=== PATIENT | male | born 1935 | race Caucasian/White ===

== ENCOUNTER 2016-06-01 16:46 | Inpatient (IN) | payer MEDICAID, MEDICARE ==
--- NOTE | 2016-06-01 17:37 | Emergency Department Report ---
HPI - General Chief Complaint: Hyperglycemia Time Seen by Provider: 06/01/16 17:14 - HPI HPI: This is a 81-year-old male presents to the emergency department by EMS from what appears to be a friend's house with hyperglycemia. The patient himself appears altered or has a baseline dementia. He is a poor historian currently. When asked why he is at the hospital, the patient says "I don't know." He gives the same answer for how he got to the hospital. Per EMS, the patient's friend called EMS when the patient started complaining of some generalized pain and appearing slightly altered. The patient does have some history of CVA and insulin-dependent diabetes. The patient's family is not bedside and able to give a little bit more information. The patient was visiting a family member when he started became unresponsive. The patient did have a history of a CVA in the past that left him with some deficits but they resolved. He does have a history of dementia and goes between AAO 2-3. He has a primary care doctor in [facility]. ED Past Medical Hx - Past Medical History Hx CVA: Yes (2 months ago) Hx Diabetes: Yes - Social History Smoking Status: Never Smoker Substance Use Type: None - Medications Home Medications: Home Medications Medication Instructions Recorded Confirmed Last Taken Type Unobtainable 06/01/16 06/01/16 Unknown History ED Review of Systems ROS: Stated complaint: HYPERGLYCEMIA Other details as noted in HPI Comment: Unobtainable due to pts medical conditions Physical Exam - Physical Exam Vital Signs: Vital Signs 06/01/16 17:14 Temperature 98.3 F Pulse Rate 89 Respiratory 16 Rate Blood Pressure 120/69 [Left] O2 Sat by Pulse 99 Oximetry Physical Exam: GENERAL: The patient is well-developed well-nourished. Patient is awake but does appear confused. HEENT: Normocephalic. Atraumatic. Extraocular motions are intact. Patient has moist mucous membranes. Pupils equal reactive to light bilaterally. NECK: Supple. Trachea is midline. CHEST/LUNGS: Clear to auscultation. There is no respiratory distress noted. HEART/CARDIOVASCULAR: Regular. There is no tachycardia. There is no gallop rub or murmur. ABDOMEN: Abdomen is soft, nontender. Patient has normal bowel sounds. There is no abdominal distention. SKIN: Skin is warm and dry. NEURO: Patient is awake. AAO [address] but not time. Follows some commands. Withdraws to painful stimuli. MUSCULOSKELETAL: There is no tenderness or deformity. There is no limitation range of motion. There is no evidence of acute injury. ED Course Vital Signs 06/01/16 17:14 Temperature 98.3 F Pulse Rate 89 Respiratory 16 Rate Blood Pressure 120/69 [Left] O2 Sat by Pulse 99 Oximetry ED Medical Decision Making - Lab Data Result diagrams: 06/01/16 19:21 06/01/16 19:21 - EKG Data -: EKG Interpreted by Me EKG shows normal: sinus rhythm, axis, intervals, QRS complexes (q waves to the anterior leads), ST-T waves Rate: normal - EKG Data When compared to previous EKG there are: previous EKG unavailable Interpretation: other (q waves to anterior leads) - Radiology Data Radiology results: report reviewed, image reviewed interpreted by me: Chest x-ray did not show any acute process. Heart is normal shape and size. No effusions. No pneumothorax. No signs of pneumonia seen. CT of the head without contrast shows evidence of moderate atrophy and gliosis. Old area of encephalomalacia in the left frontal lobe. Old lacunar infarcts. Abnormal increased density seen in the left side of the sphenoid sinus road into the left temporal fossa and sella turcica anteriorly. A mass originating in the sphenoid sinus is probably more likely although a mass in the sella turcica extending and sphenoid sinus cannot be excluded. Consider malignancy an infectious etiology. MRI of the brain without and with gadolinium is recommended. - Medical Decision Making 81-year-old male presents the emergency department with altered mental status or some episodes of being unresponsive. Patient was found have elevated blood sugar of almost 500. There is no significant elevated anion gap and there is no acidosis and patient does not appear to be in diabetic ketoacidosis. It is possible that it is some low-grade HHNK. He was given IV fluid resuscitation and IV insulin to bring the blood sugar further down. Patient did have a CT scan of the head without contrast that shows concern for some abnormal density in the left sphenoid sinus and erodes into the left temporal fossa and sella turcica that could be malignancy versus infectious etiology. Family is bedside and confirms that this is altered mental status for this patient despite his history of dementia. He will be admitted to the hospital for further evaluation and treatment is been accepted for admission by the hospitalist, Dr. Quiles. - Differential Diagnosis malignancy, fungal infection, DKA, HHNK, CVA Critical Care Time: No Critical care attestation.: If time is entered above; I have spent that time in minutes in the direct care of this critically ill patient, excluding procedure time. ED Disposition Clinical Impression: Hyperglycemia Altered mental state Qualifiers: Altered mental status type: unspecified Qualified Code(s): R41.82 - Altered mental status, unspecified Brain malignancy Qualifiers: Malignant neoplasm of brain location: overlapping locations Qualified Code(s): C71.8 - Malignant neoplasm of overlapping sites of brain Disposition: OP ADMITTED IP TO THIS HOSP Is pt being admited?: Yes Condition: Fair Time of Disposition: 22:14
[2016-06-01 17:48] LABS: Urine Drugs of Abuse Note Disclamer
[2016-06-01 17:59] LABS: Bilirubin,Urine NEG (Negative); Blood,Urine SM (Negative); Ketones,Urine NEG (Negative); Leukocyte Esterase,Urine NEG (Negative); Mucus,Urine FEW /HPF; Nitrite,Urine NEG (Negative); Protein,Urine <15 mg/dL mg/dL (Negative); Urobilinogen,Urine < 2.0 mg/dL (<2.0); WBC,Urine < 1.0 /HPF (0.0-6.0)
--- NOTE | 2016-06-01 18:20 | Cat Scan Report ---
FINAL REPORT PROCEDURE: CT HEAD/BRAIN WO CON TECHNIQUE: Computerized tomography of the head was performed without contrast material. HISTORY: Altered mental status. COMPARISON: No prior studies are available for comparison. FINDINGS: There is no evidence of intracranial hemorrhage. No parenchymal hemorrhage is visualized. The ventricles sulcal pattern and fissures are prominent consistent with moderate diffuse atrophy. There is decreased density in the periventricular white matter without mass effect suggesting moderate gliosis related to microvascular disease or white matter changes of aging. Old area of encephalomalacia is visualized in the left frontal lobe anterior. There appears to be an old lacunar infarct in the right basal ganglia. There also appear to be old lacunar infarcts in the external capsules bilaterally. There is opacification of the sphenoid sinus. A mass appears to be present eroding through left side of the sphenoid sinus into the left temporal fossa. There also appears to be erosion into the anterior aspect of the sella turcica. A mass originating in the sella turcica or within the sphenoid sinus including malignancy or infectious etiology could present in this manner. There is no hemorrhage or mass effect in the left temporal fossa. This does not appear to be invading the left temporal lobe. The abnormal density extends transverse 3.4 centimeter, 2.5 centimeter AP. IMPRESSION: There is evidence of moderate atrophy and gliosis. Old area of encephalomalacia seen left frontal lobe. Old lacunar infarcts are present. Abnormal increased density seen in the left side of the sphenoid sinus eroding into the left temporal fossa and sella turcica anteriorly. A mass originating in the sphenoid sinus is probably more likely although I cannot exclude a mass in the sella turcica extending into the sphenoid sinus. Consider malignancy and infectious etiology. MRI of the brain without with gadolinium enhancement is recommended.
--- NOTE | 2016-06-01 18:49 | Admit Criteria Form ---
Admission Criteria Documentation: MENTAL STATUS CHANGE Clinical Indications for Inpatient Care (Place 'X' for any and all applicable criteria): Ongoing inpatient care may be needed for ANY ONE of the following(1)(2)(3)(5)(6) : [X]I. Suspected serious etiology (eg, medical disorder, MATCH[employer]OOK [employer]ER event) of mental status change [ ]II. Danger to self or others not manageable at lower level of care [ ]III. Grave disability (eg, inability to perform self care necessary at lower level of care) [ ]IV. Agitation or inappropriate behavior interfering with care for primary condition (eg, attempting to discontinue lines or drains prematurely, unable to cooperate with respiratory care) [ ]V. Delirium [A] [D][E] as described by ANY ONE of the following(26): [ ]a) Delirium due to alcohol or sedative [F] withdrawal [ ]b) Delirium of uncertain etiology that has not responded to appropriate empiric treatment [ ]c) Delirium that prevents performance of a life-sustaining function (eg, feeding or hydrating oneself) [ ]. General contraindications and/or Inappropriate clinical situations for Observational Care in patients with Mental Status Change, when ANY ONE of the following is required: [ ]a) Prediction of prolongation of LOS based on ANY ONE of the following may be considered as a contraindication for observational care 2, 3, 4, 5, 6, 7, 8, 9, 10, 11 [ ]i) Age > 65 yrs. [ ]ii) Patient arriving by ambulance [ ]iii) Patient with high acuity [ ]iv) Patient requiring vital sign monitoring [ ]v) Patient on IV medication [ ]b) Systolic blood pressures 180mmHg 3,12 [ ]c) Patient with altered mental status including delirium and other alteration of consciousness, (3) [ ]d) Patient whose discharge disposition will be to a shelter home or rehabilitation home should not be managed in Emergency Department Observation Unit. CMS rule requires 3 days hospital stay before such placement.3,13 [ ]e) Patient with failure to thrive due to broad array of etiologies 3,16,17 [ ]f) Inability to ambulate 3,14 Extended stay beyond goal length of stay for the primary condition may be needed until ALL of the following are present(3)(5): [ ]a) Underlying medical etiology of mental status change is absent, or has been established and adequately treated [ ]b) Danger to self or others is absent or manageable at lower level of care. [ ]c) Behavior crisis management, including physical or chemical restraints, is not required or available at lower level of car [ ]d) Substance or alcohol withdrawal is absent or manageable at lower level of care. [ ]e) Behavioral symptoms (eg, agitation, somnolence, inappropriate behavior) are absent, or are manageable at lower level of care. The original [facility] content created by [facility] has been revised. The portions of the content which have been revised are identified through the use of italic text or in bold, and [facility] has neither reviewed nor approved the modified material. All other unmodified content is copyright [facility]. Please see references footnoted in the original [facility] edition 2016
[2016-06-01 19:52] LABS: Basophils % (Auto) 0.3 % (0.0-1.8); Eosinophils % (Auto) 0.1 % (0.0-4.3); Hematocrit 42.7 % (35.5-45.6); Hemoglobin 14.5 gm/dl (11.8-15.2); Mean Corpuscular HGB Conc 34 % (32-34); Mean Corpuscular Hemoglobin 29 pg (28-32); Mean Corpuscular Volume 87 fl (84-94); Platelet Count 264 K/mm3 (140-440); Red Blood Count 4.94 M/mm3 (3.65-5.03); Red Cell Distribution Width 12.8 % (13.2-15.2); White Blood Count 9.3 K/mm3 (4.5-11.0)
[2016-06-01 20:03] LABS: Anion Gap 19 mmol/L; Blood Urea Nitrogen 14 mg/dL (9-20); Calcium 9.3 mg/dL (8.4-10.2); Carbon Dioxide 23 mmol/L (22-30); Chloride 96.3 mmol/L (98-107); Glucose 474 mg/dL (75-100); Potassium 4.5 mmol/L (3.6-5.0); Sodium 134 mmol/L (137-145)
[2016-06-01] MEDS ORDERED: NACL 0.9% 1000 ML 1,000 ML IV ONE (20:05)
[2016-06-01] MEDS ORDERED: LEVEMIR SUB-Q SCH (22:00)
[2016-06-01] MEDS ORDERED: D50W (25GM) IV PRN (22:10)
--- NOTE | 2016-06-01 22:13 | History and Physical Report ---
History of Present Illness Date of examination: 06/01/16 Chief complaint: Altered mental status History of present illness: 81-year-old male with past medical history significant for dementia, Dm, hypertension presented to the emergency department with complaints of altered mental status. The patient stated he don't know why he came to the hospital. per his grand daughter the patient was at friends house when he had AMS. He lost his consciousness briefly. No abnormal body movement. The patient returned to his base line. No new compliants. REVIEW OF SYSTEMS: GENERAL: no weight change, no fatigue, no fever HEAD: no head ache EYES: no blurry vision, no acute visual loss EARS: no hearing loss, no discharge, no earache NOSE: no stuffiness, no sneezing, no discharge MOUTH, THROAT AND NECK: no bleeding gums, no sore throat, no swollen neck CARDIAC: no palpitations, no dyspnea on exertion, no orthopnea, no PND, no edema , no chest pain RESPIRATORY: no shortness of breath, no wheeze, no cough, no sputum, no hemoptysis, no asthma GI: no decreased appetite, no nausea, no vomiting, no dysphagia, no diarrhea, no constipation, no abdominal pain URINARY: no change in frequency, no urgency, no polyuria, no hematuria, no incontinence MUSCULOSKELETAL: no muscle weakness, no pain, no joint stiffness NEUROLOGIC: no loss of sensation/numbness, no tingling, no tremors, no weakness/ paralysis HEMATOLOGIC: no anemia, no easy bruising SKIN: no rashes ENDOCRINE: no heat/cold intolerance, no polyuria, no polydipsia, no thyroid problems, no diabetes PSYCHIATRIC: no anxiety, no depression, no suicidal ideations Past History Past Medical History: diabetes, hypertension, other (dementia) Past Surgical History: No surgical history Social history: full code. denies: smoking, alcohol abuse, prescription drug abuse, IV drug use Family history: no significant family history Medications and Allergies Allergies Allergy/AdvReac Type Severity Reaction Status Date / Time No Known Allergies Allergy Unverified 06/01/16 17:13 Home Medications Medication Instructions Recorded Confirmed Last Taken Type Unobtainable 06/01/16 06/01/16 Unknown History Active Meds: Active Medications Enoxaparin Sodium (Lovenox) 40 mg SUB-Q QDAY TANK Exam - Physical Exam Narrative exam: Not in cardiopulmonary distress. The patient appeared well nourished and normally developed. Vital signs as documented. Head exam is unremarkable. No scleral icterus . Neck is without jugular venous distension, thyromegaly, or carotid bruits. Lungs are clear to auscultation. Cardiac exam reveals regular rate and Rhythm. First and second heart sounds normal. No murmurs, rubs or gallops. Abdominal exam reveals normal bowel sounds, no masses, no organomegaly and no aortic enlargement. Extremities are nonedematous and both femoral and pedal pulses are normal. STORE ADMINISTRATIVE ASSISTANT: Alert and oriented 2. No focal weakness. - Constitutional Vitals: Temp Pulse Resp BP Pulse Ox 98.3 F 91 H 12 140/70 99 06/01/16 17:14 06/01/16 19:30 06/01/16 19:30 06/01/16 19:30 06/01/16 19:30 Results - Labs CBC & Chem 7: 06/01/16 19:21 06/01/16 19:21 Labs: Laboratory Last Values WBC 9.3 K/mm3 (4.5-11.0) 06/01/16 19:21 RBC 4.94 M/mm3 (3.65-5.03) 06/01/16 19:21 Hgb 14.5 gm/dl (11.8-15.2) 06/01/16 19:21 Hct 42.7 % (35.5-45.6) 06/01/16 19:21 MCV 87 fl (84-94) 06/01/16 19:21 MCH 29 pg (28-32) 06/01/16 19:21 MCHC 34 % (32-34) 06/01/16 19:21 RDW 12.8 % (13.2-15.2) L 06/01/16 19:21 Plt Count 264 K/mm3 (140-440) 06/01/16 19:21 Lymph % (Auto) 16.7 % (13.4-35.0) 06/01/16 19:21 Ness % (Auto) 5.2 % (0.0-7.3) 06/01/16 19:21 Eos % (Auto) 0.1 % (0.0-4.3) 06/01/16 19:21 Baso % (Auto) 0.3 % (0.0-1.8) 06/01/16 19:21 Lymph # 1.6 K/mm3 (1.2-5.4) 06/01/16 19:21 Ness # 0.5 K/mm3 (0.0-0.8) 06/01/16 19:21 Eos # 0.0 K/mm3 (0.0-0.4) 06/01/16 19:21 Baso # 0.0 K/mm3 (0.0-0.1) 06/01/16 19:21 Seg Neutrophils % 77.7 % (40.0-70.0) H 06/01/16 19:21 Seg Neutrophils # 7.2 K/mm3 (1.8-7.7) 06/01/16 19:21 VBG pH 7.381 (7.320-7.420) 06/01/16 19:21 Sodium 134 mmol/L (137-145) L 06/01/16 19:21 Potassium 4.5 mmol/L (3.6-5.0) 06/01/16 19:21 Chloride 96.3 mmol/L (98-107) L 06/01/16 19:21 Carbon Dioxide 23 mmol/L (22-30) 06/01/16 19:21 Anion Gap 19 mmol/L 06/01/16 19:21 BUN 14 mg/dL (9-20) 06/01/16 19:21 Creatinine 0.8 mg/dL (0.8-1.5) 06/01/16 19:21 Estimated GFR > 60 ml/min 06/01/16 19:21 BUN/Creatinine Ratio 17.50 % 06/01/16 19:21 Glucose 474 mg/dL (75-100) H 06/01/16 19:21 POC Glucose 437 (70-105) H 06/01/16 21:41 Calcium 9.3 mg/dL (8.4-10.2) 06/01/16 19:21 Troponin T < 0.010 ng/mL (0.00-0.029) 06/01/16 19:21 TSH 3.060 mlU/mL (0.270-4.200) 06/01/16 19:21 Urine Color Yellow (Yellow) 06/01/16 17:45 Urine Turbidity Clear (Clear) 06/01/16 17:45 Urine pH 7.0 (5.0-7.0) 06/01/16 17:45 Ur Specific [place] 1.022 (1.003-1.030) 06/01/16 17:45 Urine Protein <15 mg/dl mg/dL (Negative) 06/01/16 17:45 Urine Glucose (UA) >=500 mg/dL (Negative) 06/01/16 17:45 Urine Ketones Neg mg/dL (Negative) 06/01/16 17:45 Urine Blood Sm (Negative) 06/01/16 17:45 Urine Nitrite Neg (Negative) 06/01/16 17:45 Urine Bilirubin Neg (Negative) 06/01/16 17:45 Urine Urobilinogen < 2.0 mg/dL (<2.0) 06/01/16 17:45 Ur Leukocyte Esterase Neg (Negative) 06/01/16 17:45 Urine WBC (Auto) < 1.0 /HPF (0.0-6.0) 06/01/16 17:45 Urine RBC (Auto) 1.0 /HPF (0.0-6.0) 06/01/16 17:45 U Epithel Cells (Auto) < 1.0 /HPF (0-13.0) 06/01/16 17:45 Urine Mucus Few /HPF 06/01/16 17:45 Urine Opiates Screen Presumptive negative 06/01/16 17:45 Urine Methadone Screen Presumptive negative 06/01/16 17:45 Ur Barbiturates Screen Presumptive negative 06/01/16 17:45 Ur Phencyclidine Scrn Presumptive negative 06/01/16 17:45 Ur Amphetamines Screen Presumptive negative 06/01/16 17:45 U Benzodiazepines Scrn Presumptive negative 06/01/16 17:45 Urine Cocaine Screen Presumptive negative 06/01/16 17:45 U Marijuana (THC) Screen Presumptive negative 06/01/16 17:45 Drugs of Abuse Note Disclamer 06/01/16 17:45 Ketones mmol/L (-0.28) 06/01/16 19:21 - Imaging and Cardiology CT Scan - head: report reviewed (mass on the left side of the sphenoid sinus eroding into the left temporal fossa) Assessment and Plan Assessment and plan: AMS Mass on CT head DM hyperglycemia HTN - MRI head - neurology consult - ID consult to r/o fungal infection - resume his home insulin - F/U carotid doppler, Echo DVT prophylaxis - Lovenox Disposition - Admit to medical floor Advance Directives: Yes VTE prophylaxis?: Chemical Plan of care discussed with patient/family: Yes
--- NOTE | 2016-06-02 10:26 | XRay Report ---
Single view chest: History: Chest pain. Findings: Borderline cardiomegaly. Trachea is midline. No consolidation, pneumothorax or pleural effusion. Impression: No acute cardiopulmonary findings.
[2016-06-02] MEDS: LOVENOX SUB-Q SCH (10:29)
--- NOTE | 2016-06-02 15:44 | Progress Note ---
Assessment and Plan Assessment and plan: Patient is a 81-year-old male with past medical history significant for dementia , Dm, hypertension presented to the emergency department with complaints of altered mental status. The patient stated he don't know why he came to the hospital. per his grand daughter the patient was at friends house when he had AMS. He lost his consciousness briefly. No abnormal body movement. The patient returned to his base line. No new compliants. Current family. The patient had recently had a change and diabetic medication when he was taken off of his oral medications and placed on a low dose of Lantus. On arrival to the hospital the patient was noted to have hyperglycemic state. He has a primary care doctor in [facility]. * Acute metabolic encephalopathy likely secondary to hyperglycemic coma * Uncontrolled diabetes mellitus * Hyperglycemic coma without DKA * Brain mass unknown etiology. 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 * We'll obtain a KUB * Weight MRI results of the brain * Continue current therapy included antibiotics as already ordered await ID input. To rule out fungal infection. * Await echocardiogram and carotid Doppler * DVT and GI prophylaxis * No family at bedside at this time * Fall precautions History Interval history: Patient seen and examined this morning in no acute distress Denies any chest pain, nausea, vomiting, diarrhea No fever noted blood pressure controlled No adverse events reported to me by nursing staff Hospitalist Physical - Physical exam Narrative exam: VITAL SIGNS: Reviewed. GENERAL: The patient appeared well nourished and normally developed. Vital signs as documented. HEAD: No signs of head trauma. EYES: Pupils are equal. Extraocular motions intact. EARS: Hearing grossly intact. MOUTH: Oropharynx is normal. NECK: No adenopathy, no JVD. CHEST: Chest with clear breath sounds bilaterally. No wheezes, rales, or rhonchi. CARDIAC: Regular rate and rhythm. S1 and S2, without murmurs, gallops, or rubs. VASCULAR: No Edema. Peripheral pulses normal and equal in all extremities. ABDOMEN: Soft, without detectable tenderness. Mild distention with hypoactive sounds. No rebound or guarding, and no masses palpated. MUSCULOSKELETAL: Good range of motion of all major joints. Extremities without clubbing, cyanosis or edema. NEUROLOGIC EXAM: Alert and oriented x 3. No focal sensory or strength deficits. Speech normal. Follows commands. PSYCHIATRIC: Mood normal. SKIN: No rash or lesions. - Constitutional Vitals: Temp Pulse Resp BP Pulse Ox 97.9 F 81 20 136/74 97 06/02/16 08:10 06/02/16 08:10 06/02/16 08:10 06/02/16 08:10 06/02/16 08:10 Results - Labs CBC & Chem 7: 06/01/16 19:21 06/01/16 19:21 Labs: Laboratory Last Values WBC 9.3 K/mm3 (4.5-11.0) 06/01/16 19:21 RBC 4.94 M/mm3 (3.65-5.03) 06/01/16 19:21 Hgb 14.5 gm/dl (11.8-15.2) 06/01/16 19:21 Hct 42.7 % (35.5-45.6) 06/01/16 19:21 MCV 87 fl (84-94) 06/01/16 19:21 MCH 29 pg (28-32) 06/01/16 19:21 MCHC 34 % (32-34) 06/01/16 19:21 RDW 12.8 % (13.2-15.2) L 06/01/16 19:21 Plt Count 264 K/mm3 (140-440) 06/01/16 19:21 Lymph % (Auto) 16.7 % (13.4-35.0) 06/01/16 19:21 [place] % (Auto) 5.2 % (0.0-7.3) 06/01/16 19:21 Eos % (Auto) 0.1 % (0.0-4.3) 06/01/16 19:21 Baso % (Auto) 0.3 % (0.0-1.8) 06/01/16 19:21 Lymph # 1.6 K/mm3 (1.2-5.4) 06/01/16 19:21 [place] # 0.5 K/mm3 (0.0-0.8) 06/01/16 19:21 Eos # 0.0 K/mm3 (0.0-0.4) 06/01/16 19:21 Baso # 0.0 K/mm3 (0.0-0.1) 06/01/16 19:21 Seg Neutrophils % 77.7 % (40.0-70.0) H 06/01/16 19:21 Seg Neutrophils # 7.2 K/mm3 (1.8-7.7) 06/01/16 19:21 VBG pH 7.381 (7.320-7.420) 06/01/16 19:21 Sodium 134 mmol/L (137-145) L 06/01/16 19:21 Potassium 4.5 mmol/L (3.6-5.0) 06/01/16 19:21 Chloride 96.3 mmol/L (98-107) L 06/01/16 19:21 Carbon Dioxide 23 mmol/L (22-30) 06/01/16 19:21 Anion Gap 19 mmol/L 06/01/16 19:21 BUN 14 mg/dL (9-20) 06/01/16 19:21 Creatinine 0.8 mg/dL (0.8-1.5) 06/01/16 19:21 Estimated GFR > 60 ml/min 06/01/16 19:21 BUN/Creatinine Ratio 17.50 % 06/01/16 19:21 Glucose 474 mg/dL (75-100) H 06/01/16 19:21 POC Glucose 194 (70-105) H 06/02/16 14:14 Calcium 9.3 mg/dL (8.4-10.2) 06/01/16 19:21 Troponin T < 0.010 ng/mL (0.00-0.029) 06/01/16 19:21 TSH 3.060 mlU/mL (0.270-4.200) 06/01/16 19:21 Urine Color Yellow (Yellow) 06/01/16 17:45 Urine Turbidity Clear (Clear) 06/01/16 17:45 Urine pH 7.0 (5.0-7.0) 06/01/16 17:45 Ur Specific [place] 1.022 (1.003-1.030) 06/01/16 17:45 Urine Protein <15 mg/dl mg/dL (Negative) 06/01/16 17:45 Urine Glucose (UA) >=500 mg/dL (Negative) 06/01/16 17:45 Urine Ketones Neg mg/dL (Negative) 06/01/16 17:45 Urine Blood Sm (Negative) 06/01/16 17:45 Urine Nitrite Neg (Negative) 06/01/16 17:45 Urine Bilirubin Neg (Negative) 06/01/16 17:45 Urine Urobilinogen < 2.0 mg/dL (<2.0) 06/01/16 17:45 Ur Leukocyte Esterase Neg (Negative) 06/01/16 17:45 Urine WBC (Auto) < 1.0 /HPF (0.0-6.0) 06/01/16 17:45 Urine RBC (Auto) 1.0 /HPF (0.0-6.0) 06/01/16 17:45 U Epithel Cells (Auto) < 1.0 /HPF (0-13.0) 06/01/16 17:45 Urine Mucus Few /HPF 06/01/16 17:45 Urine Opiates Screen Presumptive negative 06/01/16 17:45 Urine Methadone Screen Presumptive negative 06/01/16 17:45 Ur Barbiturates Screen Presumptive negative 06/01/16 17:45 Ur Phencyclidine Scrn Presumptive negative 06/01/16 17:45 Ur Amphetamines Screen Presumptive negative 06/01/16 17:45 U Benzodiazepines Scrn Presumptive negative 06/01/16 17:45 Urine Cocaine Screen Presumptive negative 06/01/16 17:45 U Marijuana (THC) Screen Presumptive negative 06/01/16 17:45 Drugs of Abuse Note Disclamer 06/01/16 17:45 Ketones mmol/L (-0.28) 06/01/16 19:21 - Imaging and Cardiology Abdominal x-ray: pending MRI - head: pending
--- NOTE | 2016-06-02 16:29 | Consultation ---
History of Present Illness - Reason for Consult Consult date: 06/02/16 altered mental status Requesting physician: CARLITOS SAUNDERS - History of Present Illness 81-year-old male with past medical history significant for dementia, Dm, hypertension presented to the emergency department with complaints of altered mental status. The patient stated he don't know why he came to the hospital. per his grand daughter the patient was at friends house when he had AMS. He lost his consciousness briefly. No abnormal body movement. The patient returned to his base line. No new compliants. Infectious disease consulted. I saw patient at bedside. He is unable to provide history. However, patient had hyperglycemia at time of presentation PHYSICAL EAXAM VS - Afebrile chest - good air entry cvs - s1s2 abd - bs+ labs - reviewed. See lab section ASSESSMENT 1. Sinus mass/sinusitis 2. dm2 - uncontrolled 3. altered mental status may be sec to DKA. RECOMMENDATION 1. will not commence antibiotics 2. agree with mri brain will follow. Past History Past Medical History: diabetes, hypertension, other (dementia) Past Surgical History: No surgical history Social history: full code. denies: smoking, alcohol abuse, prescription drug abuse, IV drug use Family history: no significant family history Medications and Allergies Allergies Allergy/AdvReac Type Severity Reaction Status Date / Time No Known Allergies Allergy Unverified 06/01/16 17:13 Home Medications Medication Instructions Recorded Confirmed Last Taken Type Unobtainable 06/01/16 06/01/16 Unknown History Active Meds: Active Medications Dextrose (D50w (25gm)) 50 ml IV PRN PRN PRN Reason: Hypoglycemia Enoxaparin Sodium (Lovenox) 40 mg SUB-Q QDAY TANK Last Admin: 06/02/16 10:29 Dose: 40 mg Insulin Aspart (Novolog) 0 units SUB-Q QHS TANK PRN Reason: Protocol Insulin Detemir (Levemir) 20 units SUB-Q QHS TANK Physical Examination - Constitutional Vitals: Vital Signs Temp Pulse Resp BP Pulse Ox 97.9 F 81 20 136/74 97 06/02/16 08:10 06/02/16 08:10 06/02/16 08:10 06/02/16 08:10 06/02/16 08:10 Temperature -Last 24 Hours Temperature 97.9 F Temperature 98.5 F Results - Labs CBC & Chem 7: 06/01/16 19:21 06/01/16 19:21 Labs: Abnormal lab results 06/01/16 06/02/16 06/02/16 Range/Units 23:27 06:24 08:07 POC Glucose 284 H 195 H 169 H (70-105) 06/02/16 Range/Units 14:14 POC Glucose 194 H (70-105)
--- NOTE | 2016-06-02 16:52 | Magnetic Resonance Report ---
FINAL REPORT EXAM: MR BRAIN WO CON HISTORY: abnormal head CT TECHNIQUE: MRI of the brain without IV contrast. PRIORS: CT head June 02, 2015. FINDINGS: T2/FLAIR hyperintensities in the periventricular and subcortical white matter are nonspecific. Confluent areas of T2 hyperintensity particularly in the both frontal white matter is identified. Scattered hemosiderin deposits in the brain or calcifications identified. Focal area of encephalomalacia in the left frontal lobe could be related to chronic ischemia. Some calcification or hemosiderin deposits also noted within this region. A focal lesion is not entirely excluded. Wchs-yr-[place]cn[place] generalized atrophy noted. Midline structures are unremarkable. There is no tonsillar ectopy. Age appropriate avery-white matter differentiation is noted. There is no hydrocephalus. No intracranial mass. There is no hemorrhage. There is no midline shift. There is no restricted diffusion to suggest acute ischemia. The CP angles are grossly noted. Major flow voids are present. Within the sphenoid sinus there is a large expansile mass with intermediate T2 signal characteristics centrally and surrounding high T2 signal characteristics. There is thinning of the posterior and left lateral sphenoid partida on series 6:7. There does not appear to be any obvious intra or axial extension into the left temporal fossa 0 or the pre pontine cistern region. Overall size of the lesion measures 33 x 33 x 22 mm. There is slight expansion of the roof of the sphenoid sinus and thinning of the sella turcica. No extension into the sella identified. The pituitary gland appears relatively intact. The adjacent carotids appear intact. The cavernous sinuses do not appear to be directly involved. Smooth lobulated contours noted. No clear destructive features identified on the MRI or prior CT scan. Lesion does extend into the left orbital apex. The visualized optic nerves appear to be relatively symmetrical. Please correlate for possible diplopia or dysconjugate gaze. No proptosis is identified. Calvarial signal characteristics are grossly unremarkable. Extracranial soft tissues are intact. IMPRESSION: Expansile sphenoid lesion with focal areas of cortical thinning of the sphenoid sinus along the left lateral wall and posterior wall. No intracranial extension is clearly evident but further evaluation with MRI of the brain with contrast is recommended. No extension into the sella. There is extension toward the left orbital apex. Please correlate for dysconjugate gaze or diplopia. Differential diagnosis includes inverted papilloma, tumor, mucous retention cysts, polyp, or inflammatory infectious sinusitis. Nonspecific T2 hyperintensities in the white matter. Differential diagnosis includes microvascular ischemic disease, demyelinating process, and trauma. Confluent areas of T2 hyperintensity in the left and right frontal white matter. Left is more prominent with a focal area of encephalomalacia. Findings probably related to chronic ischemia. Underlying lesion such as a vascular malformation or tumor is not entirely excluded. Further imaging with MRI of the brain with contrast may be helpful.
[2016-06-02] MEDS ORDERED: NOVOLOG SUB-Q ONE (18:16)
[2016-06-02] MEDS: NOVOLOG SUB-Q SCH ×2 (18:24→21:55)
[2016-06-02] MEDS ORDERED: NOVOLOG SUB-Q SCH (22:00)
[2016-06-02] MEDS ORDERED: LEVEMIR SUB-Q SCH ×2 (22:00→22:15)
[2016-06-03 05:48] LABS: Hematocrit 41.2 % (35.5-45.6); Hemoglobin 13.8 gm/dl (11.8-15.2); Mean Corpuscular HGB Conc 34 % (32-34); Mean Corpuscular Hemoglobin 29 pg (28-32); Mean Corpuscular Volume 86 fl (84-94); Platelet Count 246 K/mm3 (140-440); Red Blood Count 4.81 M/mm3 (3.65-5.03); Red Cell Distribution Width 12.5 % (13.2-15.2); White Blood Count 9.4 K/mm3 (4.5-11.0)
[2016-06-03 06:11] LABS: Anion Gap 17 mmol/L; BUN/Creatinine Ratio 21.66; Blood Urea Nitrogen 13 mg/dL (9-20); Calcium 8.3 mg/dL (8.4-10.2); Carbon Dioxide 23 mmol/L (22-30); Chloride 102.6 mmol/L (98-107); Glucose 134 mg/dL (75-100); Sodium 139 mmol/L (137-145)
[2016-06-03 06:12] LABS: Potassium 3.4 mmol/L (3.6-5.0)
[2016-06-03] MEDS: NOVOLOG SUB-Q SCH ×2 (07:44→11:45)
[2016-06-03 09:52] VITALS: BP 146/77
--- NOTE | 2016-06-03 10:17 | XRay Report ---
KUB: 06/02/16 12:58:00 CLINICAL: Abdominal pain. FINDINGS: A relatively gasless abdomen with a large volume of stool throughout the colon. Possible left renal calculus. No pneumoperitoneum. Haziness of the abdomen suggests possible ascites. Degenerative change in the spine. IMPRESSION: Possible ascites. Moderate stool but no bowel obstruction.
[2016-06-03] MEDS: LOVENOX SUB-Q SCH (10:28)
--- NOTE | 2016-06-03 13:43 | Discharge Summary ---
Providers - Providers Date of Admission: 06/01/16 22:09 Date of discharge: 06/03/16 Attending physician: CARLITOS SAUNDERS MD 06/01/16 22:15 Speech Therapy Evaluation and Treat [CONS] Routine Reason For Exam: Altered mental status Hospitalization Reason for admission: syncope Condition: Stable Hospital course: Patient is a 81-year-old male with past medical history significant for dementia , Dm, hypertension presented to the emergency department with complaints of altered mental status. The patient stated he don't know why he came to the hospital. per his grand daughter the patient was at friends house when he had AMS. He lost his consciousness briefly. No abnormal body movement. The patient returned to his base line. No new compliants. Current family. The patient had recently had a change and diabetic medication when he was taken off of his oral medications and placed on a low dose of Lantus. On arrival to the hospital the patient was noted to have hyperglycemic state. He has a primary care doctor in [facility]. Does determine the patient's altered mental status and possibly also secondary to hypoglycemic events. Per family patient was recently in the hospital where all his medications were changed. He was started on low dose insulin which appears to have not controlled his blood sugar. His blood sugar was over 500 mg of DKA was noted. The patient did have a noted mass on the brain family states that they have well aware of this mass and patient has had a sphenoid type surgery in the past. An MRI MRA of the head has been obtained and also of the brain of this lesion. It is described as an SPEP and MONI sphenoid lesion does not demonstrate any appreciable enhancement. Nonspecific focal enhancement of the left frontal lobe near the midline and dissected to the areas of T2 hyperintensity and encephalomalacia noted. Again the daughter states that they do have a neurologist and neurosurgeon that they follow-up I would rather have them reevaluated the patient. Patient did have a KUB which showed large moderate stool burden. He did move his bowels today. Stable for discharge. ID input was noted patient was advised to follow with ENT. Discussions with the patient's was done via interpretation by the patient's daughter * Acute metabolic encephalopathy likely secondary to hyperglycemic coma * Uncontrolled diabetes mellitus * Hyperglycemic coma without DKA * Brain mass unknown etiology. 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 GENERAL: The patient appeared well nourished and normally developed. Vital signs as documented. HEAD: No signs of head trauma. EYES: Pupils are equal. Extraocular motions intact. EARS: Hearing grossly intact. MOUTH: Oropharynx is normal. NECK: No adenopathy, no JVD. CHEST: Chest with clear breath sounds bilaterally. No wheezes, rales, or rhonchi. CARDIAC: Regular rate and rhythm. S1 and S2, without murmurs, gallops, or rubs. VASCULAR: No Edema. Peripheral pulses normal and equal in all extremities. ABDOMEN: Soft, without detectable tenderness. Mild distention with hypoactive sounds. No rebound or guarding, and no masses palpated. MUSCULOSKELETAL: Good range of motion of all major joints. Extremities without clubbing, cyanosis or edema. NEUROLOGIC EXAM: Alert and oriented x 3. No focal sensory or strength deficits. Speech normal. Follows commands. PSYCHIATRIC: Mood normal. SKIN: No rash or lesions. - Constitutional Vitals: Temp Pulse Resp BP Pulse Ox 98.1 F 77 18 146/77 98 06/03/16 08:00 06/03/16 08:00 06/03/16 08:00 06/03/16 08:00 06/03/16 08:00 Plan Activity: advance as tolerated, fall precautions Diet: diabetic Special Instructions: record daily weights, record daily BP diary, record blood sugar diary, physical therapy, occupational therapy Additional Instructions: Follow with personal neurologist. Review brain imaging. Family aware of brain mass per daughter. Follow up with: SERGEI WIN DR [Other] - 3-5 Days Prescriptions: Insulin Glargine [Lantus] 20 unit SUB-Q QHS 30 Days Docusate Sodium [Colace CAP] 100 mg PO BID PRN #30 capsule PRN Reason: Constipation Insulin Lispro [HumaLOG VIAL] See Protocol SQ AC 30 Days Modafinil [Provigil] 100 mg PO QAM 30 Days
--- NOTE | 2016-06-03 16:12 | Progress Note ---
Subjective Date of service: 06/03/16 Principal diagnosis: altered mental status Interval history: VS - Afebrile chest - good air entry [facility] - s1s2 abd - bs+ labs - reviewed. See lab section ASSESSMENT 1. Sinus mass/sinusitis 2. dm2 - uncontrolled 3. altered mental status may be sec to DKA. RECOMMENDATION 1. consider mri with contrast and possible biopsy of the sphenoid sinus mass. 2. ENT evaluation Objective - Constitutional Vitals: Vital Signs Temp Pulse Resp BP Pulse Ox 98.1 F 77 18 146/77 98 06/03/16 08:00 06/03/16 08:00 06/03/16 08:00 06/03/16 08:00 06/03/16 08:00 Temperature -Last 24 Hours Temperature 98.1 F Temperature 97.8 F - Labs CBC & Chem 7: 06/03/16 04:32 06/03/16 04:32 Labs: Abnormal lab results 06/02/16 06/02/16 06/03/16 Range/Units 17:05 21:43 04:32 RDW 12.5 L (13.2-15.2) % Potassium (3.6-5.0) mmol/L Creatinine (0.8-1.5) mg/dL Glucose (75-100) mg/dL POC Glucose 172 H 258 H (70-105) Calcium (8.4-10.2) mg/dL 06/03/16 06/03/16 Range/Units 04:32 11:28 RDW (13.2-15.2) % Potassium 3.4 L D (3.6-5.0) mmol/L Creatinine 0.6 L (0.8-1.5) mg/dL Glucose 134 H (75-100) mg/dL POC Glucose 283 H (70-105) Calcium 8.3 L (8.4-10.2) mg/dL
--- NOTE | 2016-06-03 16:20 | Magnetic Resonance Report ---
FINAL REPORT EXAM: MR BRAIN W CON HISTORY: mass TECHNIQUE: MRI of the brain with IV contrast. PRIORS: MRI brain June 02, 2016. FINDINGS: Previously-seen expansile sphenoid lesion does not demonstrate any appreciable enhancement. Punctate area of focal enhancement noted within the left frontal area on series 3:19. Area of enhancement measures 7 mm. Nearby encephalomalacia noted. No other areas of enhancement identified. IMPRESSION: Expansile sphenoid lesion does not demonstrate any appreciable enhancement. Differential diagnosis includes inverted papilloma, tumor, complex mucous retention cyst, and polyp. Infectious or inflammatory sinusitis is less likely. Nonspecific focal enhancement in the left frontal lobe near the midline adjacent areas of T2 hyperintensity and encephalomalacia. Findings may represent a prominent vascular structure, vascular malformation, or less likely tumor. Short-term interval follow-up recommended.
--- NOTE | 2016-06-03 16:22 | Magnetic Resonance Report ---
FINAL REPORT EXAM: MR MRA/MRV HEAD WO CON HISTORY: mass TECHNIQUE: MRA of the Head without IV contrast. PRIORS: None currently available. FINDINGS: Head: No invasion into the intracranial carotids by the sphenoid lesion. The anterior and posterior circulation appear unremarkable. There is no aneurysm, dissection, vascular malformation, or significant vascular stenosis. There is no evidence for vasculitis. IMPRESSION: Unremarkable.
[2016-06-03] MEDS ORDERED: COLACE PO SCH (22:00)
[2016-06-07 07:42] LABS: B-Hydroxybutyrate 0.2 mmol/L (0.2 - 0.28)
--- NOTE | 2016-06-07 08:25 | Vascular Lab Report ---
CAROTID DUPLEX STUDY: RIGHT PSVEDV CCA PROX:9813 CCA DIST:64 0 ICA PROX:69 9 ICA MID:6510 ICA DIST:8014 ECA: 67 5 VERT: 33 7 LEFT PSVEDV CCA PROX:80 9 CCA DIST:71 8 ICA PROX:45 7 ICA MID:40 8 ICA DIST:8517 ECA: 73 5 VERT: 35 10 REASON FOR EXAM: Carotid artery stenosis/acute mental status change. COMMENTS ON THE RIGHT: Doppler frequency analysis is consistent with 16 to 49 percent diameter reduction of the internal carotid artery. Minimal amount of plaque is seen. The common carotid artery is patent. The external carotid artery is patent. The vertebral artery has antegrade flow. COMMENTS ON THE LEFT: Doppler frequency analysis is consistent with 16 to 49 percent diameter reduction of the internal carotid artery. Minimal amount of plaque is seen. The common carotid artery is patent. The external carotid artery is patent. The vertebral artery has antegrade flow. IMPRESSION: Less than 50% diameter reduction in the internal carotid arteries bilaterally. Consider repeat carotid artery duplex in 12 months.
== END 2016-06-03 15:51 | disposition home or self-care (01) | DRG 637 ==
LOC: ED 16:46 → CC2 22:09
PROVIDERS: ADMIT Internal Medicine; ATTEND Internal Medicine
DX: E11.65 Type 2 diabetes mellitus with hyperglycemia (principal); G93.41 Metabolic encephalopathy; F03.90 Unspecified dementia, unspecified severity, without behavioral disturbance, psychotic disturbance, mood disturbance, and anxiety; I10 Essential (primary) hypertension; J32.9 Chronic sinusitis, unspecified; G93.9 Disorder of brain, unspecified; I69.354 Hemiplegia and hemiparesis following cerebral infarction affecting left non-dominant side
CPT/HCPCS: 36415; 70450; 70544; 70551; 70552; 71010; 74000; 80048; 80307; 81001; 82010; 82805; 82962; 84443; 84484; 85025; 85027; 93005; 93010; 93880; 96361; 96374; A9577; J1650; J1815; J1818; J7030